=== PATIENT | female | born 1955 | race Caucasian/White ===

== ENCOUNTER 2017-10-20 16:09 | Observation (INO) ==
[2017-10-20] MEDS ORDERED: Ondansetron 4 MG/2 ML VIAL IVP ONE (17:07)
--- NOTE | 2017-10-20 17:10 | Emergency Department Note ---
Disposition Clinical Impression: Food impaction of esophagus Qualifiers: Encounter type: initial encounter Qualified Code(s): T18.128A - Food in esophagus causing other injury, initial encounter Disposition: Admitted As Inpatient Condition: Fair General Adult HPI - General Chief complaint: ED Skin/Abscess/Foreign Body Stated complaint: Food Bolus <--- Chicken Nursing Notes Reviewed: Yes Vital Signs Reviewed: Yes - History of Present Illness HPI Narrative: 62-year-old female presents emergency Department with form body stuck in her esophagus. Patient states that she was eating chicken last night [place] 24 hours ago and felt the sensation of the food did not go all the way down. Patient has a chronic history of this and food normally goes down. Patient has tried to swallow fluids and has been able to swallow some, but has not been able to swallow all. - Related Data Allergies Allergy/AdvReac Type Severity Reaction Status Date / Time No Known Allergies Allergy Verified 10/20/17 16:12 All systems ED: reviewed and negative except as stated. Review of Systems: As Per HPI Constitutional: Denies: fever Cardiovascular: Reports: chest pain (Retrosternal) Respiratory: Denies: cough, dyspnea Gastrointestinal: Reports: nausea. 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 Absent: scleral icterus - ENT ENT exam: normal exam, normal oropharynx, mucous membranes moist - Neck Neck exam: Present: trachea midline. Absent: tenderness - Chest Chest inspection: Present: normal inspection, symmetric chest wall rise - Respiratory Respiratory exam: Present: normal lung sounds bilaterally. Absent: respiratory distress - Abdominal Exam Abdominal exam: Present: soft, Non-Tender. Absent: distention, guarding, rebound Course Vital Signs Temperature 97.9 F 10/20/17 16:10 Pulse Rate 91 05/23/18 16:10 Respiratory Rate 18 10/20/17 16:10 Blood Pressure 126/87 10/20/17 16:10 O2 Sat by Pulse Oximetry 96 10/20/17 16:10 Temperature 98.7 F 10/20/17 22:11 Pulse Rate 80 10/20/17 22:11 Respiratory Rate 16 10/20/17 22:11 Blood Pressure 175/82 10/20/17 22:11 O2 Sat by Pulse Oximetry 95 10/20/17 22:11 Oxygen Delivery Oxygen Delivery Room Air Medical Decision Making - MDM Narrative Medical decision making narrative: 62-year-old female presents to the emergency department after not being able to swallow chicken. This happened over 24 hours ago. Patient not able to swallow liquids completely. Able to handle her secretions on physical exam, but still very uncomfortable. IV was placed and Zofran and glucagon were Mr. This is unsuccessful. Dr. Winters was called and took patient to endoscopy lab for food bolus disimpaction. Patient agreed with plan. Patient hemodynamically stable but was uncomfortable at time of discharge from the emergency department to the hospital. Vital Signs Temperature 97.9 F 10/20/17 16:10 Pulse Rate 91 10/20/17 16:10 Respiratory Rate 18 10/20/17 16:10 Blood Pressure 126/87 10/20/17 16:10 O2 Sat by Pulse Oximetry 96 10/20/17 16:10 Temperature 98.7 F 10/20/17 22:11 Pulse Rate 80 10/20/17 22:11 Respiratory Rate 16 10/20/17 22:11 Blood Pressure 175/82 10/20/17 22:11 O2 Sat by Pulse Oximetry 95 10/20/17 22:11 Oxygen Delivery Oxygen Delivery Room Air
[2017-10-20] MEDS ORDERED: Lidocaine -MPF 2% 2 ML VIAL ONE (18:08)
[2017-10-20] MEDS ORDERED: *HR* Propofol 200 MG/20 ML VIAL IVP ONE ×5 (18:08→19:40)
--- NOTE | 2017-10-20 18:13 | Emergency Department Note ---
START Narrative - START START: I examined this patient and my medical decision-making was reviewed with the Resident Physician. I agree with the documented findings, disposition and treatment plan as described except to the extent set forth below. 62-year-old female presented to the emergency room for food stuck in her throat. Patient was eating chicken last evening when she got food stuck. She states some of her liquid goes through another time she regurgitated everything back up. We gave her glucagon test in the ER. She still unable to keep down pop. Consult with general surgery who will evaluate her in the emergency room. Her vitals are stable.
--- NOTE | 2017-10-20 18:20 | General Surgery Consult Note ---
Date of Encounter: 10/20/17 Time of Encounter: 18:18 Assessment and Plan (1) Esophageal obstruction due to food impaction Current Visit: Yes Status: Acute I explained to the patient that given her overall symptoms I do think it would be appropriate to proceed with an EGD with MAC. MAC is requested due to the patient's current medications and difficulty with sedation. We will be able to perform this within the next 30-60 minutes and she will be to be discharged home with follow-up in approximately 3 weeks. History of Present Illness Consult date: 10/20/17 Reason for consult: other (Dysphagia) Requesting physician: Lucho Lackey History of present illness: The patient is a 62-year-old female with a past medical history significant for depression was had a previous history of dysphagia requiring an EGD approximate 4+ years ago who states that at 5 PM yesterday she had chicken and ever since has had difficulty swallowing. She has had the sensation of something stuck in the esophagus and came to the emergency room late this afternoon for evaluation. They have given her glucagon and she has not had any improvement in her overall symptoms. She denies any nausea vomiting or any abdominal pain. Past Med Surg Social Fam HX - Past Medical History Medical history: arthritis, thyroid disease Psychiatric history: no psych history - Past Surgical History Surgical History: appendectomy, cholecystectomy, other (EGD) - Social History Smoking Status: Never smoker Smokeless Tobacco Status: No Alcohol use: none Drug use: none Medications and Allergies Hydrocodone/Acetaminophen [[place] 10-325 Tablet] 1 tab PO Q6H PRN #5 tab [Rx] Cefdinir [Omnicef] 600 mg PO DAILY #20 capsule 11/26/16 [Rx] GuaiFENesin/Codeine [ROBITUSSIN w/CODEINE] 5 ml PO Q4-6H PRN #120 ml 11/26/16 [ Rx] 3 Allergy/AdvReac Type Severity Reaction Status Date / Time No Known Allergies Allergy Verified 10/20/17 16:12 Review of Systems All systems PM: reviewed and no additional remarkable complaints except as stated All systems PM: The remainder of the systems were reviewed and are negative General Surgery Exam Initial Vital Signs Temp Pulse Resp BP Pulse Ox 97.9 F 91 18 126/87 96 10/20/17 16:10 10/20/17 16:10 10/20/17 16:10 10/20/17 16:10 10/20/17 16:10 - Eyes normal ocular movement - Respiratory normal expansion, normal respiratory effort - Cardiovascular Cardiovascular exam: Present: RRR, no murmurs/rubs/gallops - Abdomen Abdomen general surgery: Present: bowel sounds present, soft, non tender - Neurologic Present: CN 2-12 grossly intact - Psychiatric Psychiatric general surgery: Present: A&Ox3, oriented to person, oriented to place, oriented to time Exam Initial Vital Signs Temp Pulse Resp BP Pulse Ox 97.9 F 91 18 126/87 96 10/20/17 16:10 10/20/17 16:10 10/20/17 16:10 10/20/17 16:10 10/20/17 16:10 Results - Labs All other labs normal. Consult Discharge Plan - Plan
--- NOTE | 2017-10-20 18:46 | Anesthesia Evaluation PreOp ---
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: Other (Anxiety/Depression) Other Medical History: Diabetes Type II, Thyroid Anesthesia History: No Prior Anesthetic Complications, Past Anesthesia Alcohol Use: none Drug use: none Medications and Allergies Hydrocodone/Acetaminophen [[place] 10-325 Tablet] 1 tab PO Q6H PRN #5 tab [Rx] Cefdinir [Omnicef] 600 mg PO DAILY #20 capsule 11/26/16 [Rx] GuaiFENesin/Codeine [ROBITUSSIN w/CODEINE] 5 ml PO Q4-6H PRN #120 ml 11/26/16 [ Rx] 3 Allergy/AdvReac Type Severity Reaction Status Date / Time No Known Allergies Allergy Verified 10/20/17 16:12 - Meds/Allergy Pre-op Review Medications Reviewed: Yes Allergies Reviewed: Yes Beta Blockers on Current Med List: No Anesthesia Exam Vital Signs Temp Pulse Resp BP Pulse Ox 10/20/17 16:10 97.9 F 91 18 126/87 96 Intake and Output 10/20/17 10/20/17 10/20/17 07:59 15:59 23:59 Other: Weight 109.86 kg Patient Weight 10/20/17 23:59 Weight 109.86 kg - HEENT Pupil (Motor): Pupils equal, EOMI Mallampati: III Teeth: Missing, Poor dentition Oral Opening: Greater than 3 - 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 Pema Quick MD
[2017-10-20] MEDS ORDERED: Ringers Solution, Lactated 1,000 ML IVC SCH (19:00)
[2017-10-20] MEDS ORDERED: Simethicone 40 MG/0.6 ML MLS IR ONE (19:10)
[2017-10-20] MEDS ORDERED: Tetracaine/Benzocaine/Butamben 200MG/SPRAY (100SPY/BOT) MM ONE (19:10)
[2017-10-20] MEDS ORDERED: Ondansetron 4 MG/2 ML VIAL ONE (19:49)
[2017-10-20] MEDS ORDERED: Dexamethasone 4 MG/ML VIAL ONE (19:49)
[2017-10-20] MEDS ORDERED: *HR* Succinylcholine 200 MG/10 ML VIAL IVP ONE (19:50)
--- NOTE | 2017-10-20 20:05 | Event Note ---
Date of Encounter: 10/20/17 Time of Encounter: 20:04 EGD performed. Noted food bolus in the distal esophagus. Retrieved and pushed into stomach. Once patient recovers (1-2 hours) she can be discharged home with follow up in two days.
--- NOTE | 2017-10-20 20:53 | Anesthesia Evaluation Post Op ---
Date of Encounter: 10/20/17 Time of Encounter: 20:51 - Vital Signs Vital Signs: Last Vital Signs Temp 99.1 F 10/20/17 20:19 Pulse 82 10/20/17 20:39 Resp 16 10/20/17 20:39 BP 143/80 10/20/17 20:39 Pulse Ox 94 10/20/17 20:39 - Lungs Lungs: Clear Ascult./Percussion - Airway Airway: Non-obstructed - Cardiovascular Regular Rate - Mental Status Mental Status: Alert & Oriented, Answers Appropriately - Pain Pain Scale: 2 - Nausea Vomiting Nausea Vomiting: Not Present - Hydration Hydration: Ice chips - Discharge PostOp Status: Transfer Patient to floor
[2017-10-20] MEDS ORDERED: Pantoprazole 40 MG VIAL IVP ONE (21:13)
[2017-10-20 22:12] VITALS: BP 175/82
== END 2017-10-20 22:28 | disposition home or self-care (01) ==
LOC: 3ANU 16:09 → EMEROO 16:09 → 3ANU 18:39
PROVIDERS: ADMIT Surgery; ATTEND Surgery